=== PATIENT | male | born 1970 | race Two or more races ===

== ENCOUNTER 2017-12-08 06:26 | Emergency (ER) | payer OTHER ==
[~2017-12-08] VITALS: Ht 170.2 cm; Wt 71.8 kg
[2017-12-08 06:32] VITALS: Ht 170.2 cm; Wt 71.8 kg
[2017-12-08 07:11] VITALS: BP 143/96
== END 2017-12-08 07:11 | disposition home or self-care (01) ==
LOC: ED 06:26
DX: E11.9 Type 2 diabetes mellitus without complications (principal); E78.00 Pure hypercholesterolemia, unspecified; F15.10 Other stimulant abuse, uncomplicated; Z76.0 Encounter for issue of repeat prescription

== ENCOUNTER 2018-05-16 23:28 | Emergency (ER) | payer OTHER ==
[~2018-05-16] VITALS: Ht 170.2 cm; Wt 82.8 kg
[2018-05-17 01:43] VITALS: BP 134/86
== END 2018-05-17 01:43 | disposition home or self-care (01) ==
LOC: ED 23:28
DX: E11.40 Type 2 diabetes mellitus with diabetic neuropathy, unspecified (principal); E78.00 Pure hypercholesterolemia, unspecified
CPT/HCPCS: 82962; J1885

== ENCOUNTER 2018-09-13 10:04 | Emergency (ER) | payer OTHER ==
[~2018-09-13] VITALS: Ht 177.8 cm; Wt 80.3 kg
[2018-09-13 11:40] VITALS: BP 138/66
== END 2018-09-13 11:40 | disposition home or self-care (01) ==
LOC: ED 10:04
DX: B34.9 Viral infection, unspecified (principal); I10 Essential (primary) hypertension; E11.9 Type 2 diabetes mellitus without complications; E78.00 Pure hypercholesterolemia, unspecified

== ENCOUNTER 2020-01-19 12:55 | Emergency (ER) | payer OTHER ==
[~2020-01-19] VITALS: Ht 170.2 cm; Wt 84.4 kg
[2020-01-19 13:02] VITALS: Ht 170.2 cm; Wt 84.4 kg
[2020-01-19 14:36] LABS: BASOPHIL % 0.1 % (0-2); PLATELET COUNT 242 x10^3mcL (130-400)
[2020-01-19 14:48] LABS: BILIRUBIN TOTAL 0.5 mg/dL (0.20-1.00); CALCIUM 8.8 mg/dL (8.5-10.1); CREATININE SERUM 2.4 mg/dL (0.7-1.3); POTASSIUM SERUM 4.9 mmol/L (3.5-5.1); TOTAL PROTEIN, SERUM 7.7 g/dL (6.4-8.2)
[2020-01-19 14:53] LABS: ALBUMIN 3.3 g/dL (3.4-5.0)
[2020-01-19 16:09] VITALS: BP 151/78
== END 2020-01-19 16:09 | disposition home or self-care (01) ==
LOC: ED 12:55
PROVIDERS: Emergency Medicine
DX: K80.50 Calculus of bile duct without cholangitis or cholecystitis without obstruction (principal); I10 Essential (primary) hypertension; E11.9 Type 2 diabetes mellitus without complications; E78.00 Pure hypercholesterolemia, unspecified
CPT/HCPCS: J1885; J2405